=== PATIENT | male | born 1975 | race Caucasian/White ===

== ENCOUNTER 2017-03-11 21:09 | Inpatient (IN) | END 2017-03-14 15:15 | disposition home or self-care (01) | DRG 638 | DX: E11.10 Type 2 diabetes mellitus with ketoacidosis without coma (principal); N17.9 Acute kidney failure, unspecified; E86.0 Dehydration; E78.2 Mixed hyperlipidemia ==

== ENCOUNTER 2018-07-25 16:52 | Inpatient (IN) | payer MEDICAID ==
[~2018-07-25] VITALS: Ht 165.1 cm; Wt 73.2 kg
[~2018-07-25 16:52] MED LIST: ASPI-831 PO; ATOR40TA68 PO; BLOO-1340 MC; BLOO-432 MC; LANT3I SC; LINA5TAB PO; METF500T PO; NOVO3I SC
[2018-07-25] MEDS ORDERED: LIDOCAINE/MYLANTA 40 ML BTL PO STA (18:57)
[2018-07-25] MEDS ORDERED: FAMOTIDINE 20 MG INJ IV STA (18:57)
[2018-07-25] MEDS ORDERED: SOD CHLORIDE 0.9% 740 ML IV ONE (19:00)
--- NOTE | 2018-07-25 19:01 | ERD ---
ER Documentation Chief Complaint Chief Complaint Complains of dizziness x 3 days HPI 43-year-old male who presents to the emergency room asking for refill of his metformin 1000 twice daily. He states that he has been without it for several days. He is feeling occasional lightheadedness and dizziness. He is describing epigastric burning abdominal discomfort radiating up into his chest that is postprandial. He denies exertional chest pain, no pleuritic pain. No polyuria polydipsia polyphagia. He is also been off of insulin for greater than 1 year and does not have a primary care physician. During the patient's encounter translation services were utilized Language: Arabic Source: In person ROS All systems reviewed and are negative except as per history of present illness. Medications Home Meds Reported Medications [place]-3 Fatty Acids/Fish Oil (Fish Oil 1,000 mg Capsule) 1 Each Capsule, 1 EACH PO DAILY, CAP 07/25/18 Discontinued Scripts Blood Glucose Strips-Dispmeter (Openera Blood Glucose System) 1 Each Kit, 1 EACH MC DAILY, #1 Prov:TRAVIS TAYLOR MD 03/14/17 Blood-Glucose Meter (BLOOD GLUCOSE MONITORING) 1 Each Each, 1 EACH MC DAILY, #1 Prov:TRAVIS TAYLOR MD 03/14/17 Atorvastatin* (Atorvastatin*) 40 Mg Tablet, 40 MG PO HS for 60 Days, #60 TAB 5 Refills Prov:TRAVIS TAYLOR MD 03/14/17 Aspirin (Aspirin) 81 Mg Chew, 81 MG PO DAILY for 30 Days, #30 TAB 5 Refills Prov:TRAVIS TAYLOR MD 03/14/17 Linagliptin (TRADJENTA) 5 Mg Tablet, 5 MG PO DAILY for 30 Days, #30 TAB 5 Refills Prov:TRAVIS TAYLOR MD 03/14/17 Metformin Hcl (Glucophage) 500 Mg Tablet, 1000 MG PO PC BREAKFAST DINNER for 30 Days, #60 TAB 4 Refills Prov:TRAVIS TAYLOR MD 03/14/17 Insulin Glargine* (Lantus*) 100 Unit/Ml Soln, 25 UNIT SC DAILY@08 for 30 Days, #30 DAYSX 3 LO 5 Refills Prov:TRAVIS TAYLOR MD 03/14/17 Insulin Aspart* (Novolog Insulin Pen*) 100 Unit/Ml Soln, 12 UNIT SC WITH MEALS for 30 Days, #30 DAYSX 3 LO 5 Refills Prov:TRAVIS TAYLOR MD 03/14/17 Allergies Allergies: Coded Allergies: No Known Allergy (Unverified , 07/25/18) PMhx/Soc History of Surgery: No Hx Miscellaneous Medical Probl: Yes (DM) Hx Alcohol Use: Yes Hx Substance Use: No Hx Tobacco Use: Yes FmHx Family History: No diabetes Physical Exam Vitals Vital Signs Date Temp Pulse Resp B/P (MAP) Pulse Ox O2 O2 Flow FiO2 Time Delivery Rate 07/25/18 88 20 115/76 99 Room Air 20:15 (89) 07/25/18 98 26 124/79 100 Room Air 19:00 (94) 07/25/18 97.9 101 20 122/68 100 17:02 (86) Physical Exam General: Well developed, well nourished, no acute distress Head: Normocephalic, atraumatic. Eyes: Pupils equally reactive, EOM intact ENT: Moist mucous membranes Neck: Supple, no lymphadenopathy Respiratory: Lungs clear bilaterally, no distress Cardiovascular: RRR, no murmurs, rubs, or gallops Abdominal: Soft, non-tender, non-distended, no peritoneal signs : Deferred MSK: No edema, no unilateral swelling, 5/5 strength Neurologic: Alert and oriented, moving all extremities, normal speech, no focal weakness, no cerebellar signs Skin: No rash Psych: Normal mood Result Diagram: 07/25/18190407/25/181904 Results 24 hrs Laboratory Tests Test 07/25/18 19:05 07/25/18 19:06 White Blood Count 11.0 10^3/ul Red Blood Count 5.34 10^6/ul Hemoglobin 15.9 g/dl Hematocrit 46.2 % Mean Corpuscular Volume 86.5 fl Mean Corpuscular Hemoglobin 29.8 pg Mean Corpuscular Hemoglobin Concent 34.4 g/dl Red Cell Distribution Width 12.9 % Platelet Count 219 10^3/UL Mean Platelet Volume 10.7 fl Immature Granulocytes % 0.500 % Neutrophils % 68.9 % Lymphocytes % 23.0 % Monocytes % 7.0 % Eosinophils % 0.2 % Basophils % 0.4 % Nucleated Red Blood Cells % 0.0 /100WBC Immature Granulocytes # 0.050 10^3/ul Neutrophils # 7.6 10^3/ul Lymphocytes # 2.5 10^3/ul Monocytes # 0.8 10^3/ul Eosinophils # 0.0 10^3/ul Basophils # 0.0 10^3/ul Nucleated Red Blood Cells # 0.0 10^3/ul Sodium Level 135 mmol/L Potassium Level 4.4 mmol/L Chloride Level 100 mmol/L Carbon Dioxide Level 7 mmol/L Anion Gap 28 Blood Urea Nitrogen 15 mg/dl Creatinine 0.94 mg/dl Est Glomerular Filtrat Rate mL/min > 60 mL/min Glucose Level 335 mg/dl Bedside Glucose 361 mg/dL Hemoglobin A1c % Calcium Level 9.2 mg/dl Phosphorus Level 4.0 mg/dl Magnesium Level 2.0 mg/dl Troponin I < 0.012 ng/ml Blood Gas Specimen Source Blood venous Arterial Blood Date Drawn 07/25/2018 7:10:14 PM Arterial Blood Gas Puncture Site VENOUS LINE Parveen Test N/A Venous Blood pH 7.151 Venous Blood pCO2 (Temp Corrected) 28.2 mmHG Venous Blood pO2 (Temp Corrected) 28.6 mmHG Venous Blood HCO3 9.6 mmol/L Venous Blood Oxygen Saturation 54.5 mmHG Venous Blood Base Excess -17.7 mmol/L Venous Blood Total Hemoglobin 16.1 g/dl Venous Blood Oxyhemoglobin 54.1 % Venous Blood Methemoglobin 0.3 % Carboxyhemoglobin 0.5 % Blood Gas Temperature 37.0 C Blood Gas Modality ROOM AIR FiO2 21.0 % Blood Gas Critical Value Read Back Cecilia RASHEED RN Blood Gas Notified Whom MM Blood Gas Notified Time 07/25/2018 7:17:29 PM Current Medications Medications Dose Sig/Marci Start Time Status Last (Trade) Ordered Route PRN Stop Time Admin Dose Reason Admin Sodium 740 ml @ ONCE ONCE 07/25/18 DC 07/25/18 Chloride 740 mls/hr IV 19:00 19:22 07/25/18 19:59 Famotidine 20 mg ONCE STAT 07/25/18 DC 07/25/18 (Pepcid Iv) IV 18:57 19:22 07/25/18 18:58 40 ml ONCE STAT 07/25/18 DC 07/25/18 Miscellaneous PO 18:57 19:22 Medication 07/25/18 18:58 (Gi Cocktail (2)) Potassium 1,000 ml @ Q0M IV 07/25/18 Chloride/Sodi 0 mls/hr 19:19 um Chloride Potassium 1,000 ml @ Q0M IV 07/25/18 Chloride/Dext 0 mls/hr 19:19 jordan/ Sod Cl Potassium 1,000 ml @ Q0M IV 07/25/18 Chloride/Sodi 0 mls/hr 19:19 um Chloride Potassium 1,000 ml @ Q0M IV 07/25/18 Chloride/Dext 0 mls/hr 19:19 jordan/ Sod Cl Sodium 1,000 ml @ Q0M IV 07/25/18 Chloride 0 mls/hr 19:19 1,000 ml @ Q0M IV 07/25/18 Dextrose/Sodi 0 mls/hr 19:19 um Chloride Insulin 101 ml @ ER DKA 07/25/18 Human 7.45 mls/hr PROTOCOL IV 19:30 Regular 100 unit/ Sodium Chloride Lactated 740 ml @ ONCE ONCE 07/25/18 DC 07/25/18 Ringer's 740 mls/hr IV 19:30 20:17 07/25/18 20:29 HYPOGLYCEM 07/25/18 Miscellaneous HYPOGLYCEMIA PROTOCOL PRN 19:30 TREATMENT XX Information .HYPOGLYCEMIA (* PROTOCOL Miscellaneous Pharmacy Order) Dextrose 50 ml Q15M PRN 07/25/18 (D50w IV 19:30 Syringe) .DECREASED GLUCOSE Dextrose 25 ml Q15M PRN 07/25/18 (D50w IV 19:30 Syringe) .DECREASED GLUCOSE Procedures/MDM EKG, MONITORS, & DIAGNOSTIC IMAGING: EKG: I reviewed and interpreted a 12-lead EKG. Rhythm: Normal sinus rhythm ST Changes: No contiguous ST segment elevations T waves: No contiguous T wave inversions Impression: [No evidence of acute cardiac ischemia] LAB INTERPRETATION: I reviewed the laboratory testing and it shows evidence of diabetic ketoacidosis with a pH of 7.1, bicarb of 7 and anion gap acidosis MEDICAL DECISION MAKING: The patient presents after running out of his metformin. He has signs and symptoms consistent with reflux. His chest pain is not consistent with acute coronary syndrome though given the patient's age and history of diabetes I do believe EKG and troponin would be reasonable. GI cocktail appropriate. Benign abdominal examination. Patient will need screening to rule out diabetic ketoacidosis and refill his metformin. I do not feel the patient requires refill of his insulin given he has been off of the medication for greater than 1 year. He needs to follow-up with primary care physician and possibly bulb packer. ER COURSE: * Patient's Accu-Chek revealed hyperglycemia, venous blood gas revealed evidence and concern for diabetic ketoacidosis with a pH of 7.1 * The patient was initiated on DKA protocol with a bolus of normal saline and lactated Ringer's. Supplemental replacement fluid and potassium was ordered per protocol. Patient will be started on insulin drip. Intensive care unit needed. * The patient is protecting his airway and does not require intubation or positive pressure ventilation. Continue to monitor and hydrate. CONSULTATION: [None] DISPOSITION PLAN: Accepting care team and consultations: I discussed the current laboratory data, diagnostic imaging and emergency care provided. Admitting team: Dr. Vega Admitting team indication: Insurance directed Critical Care Note: Total time: 40 min Indication/Organ System Threat: Diabetic ketoacidosis I spent the above amount of critical care time with the patient, not including billable procedures. This included chart review, consultations, repeat bedside evaluations, and titration of appropriate medications to prevent cardiopulmonary or respiratory collapse. Departure Diagnosis: Primary Impression: Diabetic ketoacidosis Diabetes mellitus type: type 2 Diabetes mellitus complication detail: without coma Qualified Codes: E11.10 - Type 2 diabetes mellitus with ketoacidosis without coma Additional Impressions: Noncompliance with medication regimen Dehydration Condition: Critical ERIC LIND MD Jul 25, 2018 19:01
[2018-07-25] MEDS ORDERED: D10/0.45% NACL + KCL 40 MEQ 1,000 ML IV SCH (19:19)
[2018-07-25] MEDS ORDERED: SOD CHLORIDE 0.9% 1,000 ML IV SCH (19:19)
[2018-07-25] MEDS ORDERED: DEXTROSE 10 %/0.45 % NACL 1,000 ML IV SCH (19:19)
[2018-07-25] MEDS ORDERED: NS + KCL 40 MEQ 1,000 ML IV SCH (19:19)
[2018-07-25] MEDS ORDERED: NS + KCL 30 MEQ 1,000 ML IV SCH (19:19)
[2018-07-25] MEDS ORDERED: LACTATED RINGER'S 740 ML IV ONE (19:30)
[2018-07-25] MEDS ORDERED: DEXTROSE 50% 50 ML SYRINGE IV PRN ×2 (19:30)
[2018-07-25] MEDS ORDERED: INSULIN REGULAR, HUMAN 100 UNIT in SOD CHLORIDE 0.9% 100 ML IV SCH ×2 (19:30)
[2018-07-25] MEDS ORDERED: OMEG-135 PO (20:31)
--- NOTE | 2018-07-25 20:49 | HP ---
Date/Time of Note Date/Time of Note DATE: 07/25/18 TIME: 20:48 Assessment/Plan VTE Prophylaxis SCD applied (from Nsg): Yes Pharmacological prophylaxis: LMWH Lines/Catheters IV Catheter Type (from Nrsg): Saline Lock Assessment/Plan Assessment/Plan 1. Diabetic ketoacidosis - patient has been without metformin for 2 weeks - Will start on DKA protocol and monitor in ICU - once gap closes, will transition to SC 2. Diabetes Mellitus - Will check A1c - hold home PO medications - tobacco prevention health educator consultation placed as well as Dietary consult for education 3. Gastritis - continue on PPI 4. Diet - NPO 5. Gi ppx - PPI 6. DVT ppx - LMWH 7. Disposition - Admit to ICU for DKA protocol Result Diagram: 07/25/18190407/25/181904 Results 24hrs Laboratory Tests Test 07/25/18 19:05 07/25/18 19:06 White Blood Count 11.0 #H Red Blood Count 5.34 Hemoglobin 15.9 Hematocrit 46.2 Mean Corpuscular Volume 86.5 Mean Corpuscular Hemoglobin 29.8 Mean Corpuscular Hemoglobin Concent 34.4 Red Cell Distribution Width 12.9 Platelet Count 219 Mean Platelet Volume 10.7 H Immature Granulocytes % 0.500 H Neutrophils % 68.9 Lymphocytes % 23.0 Monocytes % 7.0 Eosinophils % 0.2 Basophils % 0.4 Nucleated Red Blood Cells % 0.0 Immature Granulocytes # 0.050 H Neutrophils # 7.6 H Lymphocytes # 2.5 Monocytes # 0.8 Eosinophils # 0.0 Basophils # 0.0 Nucleated Red Blood Cells # 0.0 Sodium Level 135 Potassium Level 4.4 Chloride Level 100 Carbon Dioxide Level 7 *L Anion Gap 28 H Blood Urea Nitrogen 15 Creatinine 0.94 Est Glomerular Filtrat Rate mL/min > 60 Glucose Level 335 H Bedside Glucose 361 H Hemoglobin A1c Calcium Level 9.2 Phosphorus Level 4.0 Magnesium Level 2.0 Troponin I < 0.012 Blood Gas Specimen Source Blood venous Arterial Blood Date Drawn 07/25/2018 7:10:14 PM Arterial Blood Gas Puncture Site VENOUS LINE Parveen Test N/A Venous Blood pH 7.151 *L Venous Blood pCO2 (Temp Corrected) 28.2 L Venous Blood pO2 (Temp Corrected) 28.6 Venous Blood HCO3 9.6 L Venous Blood Oxygen Saturation 54.5 L Venous Blood Base Excess -17.7 L Venous Blood Total Hemoglobin 16.1 Venous Blood Oxyhemoglobin 54.1 Venous Blood Methemoglobin 0.3 Carboxyhemoglobin 0.5 Blood Gas Temperature 37.0 Blood Gas Modality ROOM AIR FiO2 21.0 Blood Gas Critical Value Read Back Cecilia RASHEED RN Blood Gas Notified Whom MM Blood Gas Notified Time 07/25/2018 7:17:29 PM HPI/ROS Admit Date/Time Admit Date/Time 07/25/182029 Hx of Present Illness 43 yo M with PMH diabetes presented to ED with dizziness for the past 3 days. Patient states he has not been taking his metformin for the past 2 weeks since he ran out of his medications. He has been experiencing weakness, dizziness, and acid reflux for the past 3 days. He has been drinking fluids but has not been taking much PO intake given reflux symptoms which worsen with food. Patient has associated nausea, but denies any vomiting, hematemesis, chest pain, shortness of breath, palpitations, abdominal pain, urinary issues, diarrhea, melena, or bright red blood per rectum. In ED, patient found in DKA and started on protocol. ROS All 12 systems reviewed and pertinent positives as per HPI. All others negative. Constitutional: chills, fatigue, nausea Eyes: No discharge ENT: No congestion Respiratory: No cough, No shortness of breath, No sputum, No wheezing Cardiovascular: lightheadedness; No chest pain, No palpitations Gastrointestinal: pain, constipation, nausea, passing stool; No diarrhea, No vomiting Genitourinary: no complaints Musculoskeletal: no complaints Skin: No erythema, No laceration Neurologic: dizziness; No confusion, No focal-weakness, No syncope Endocrine: no complaints Lymphatic: no complaints Psychological: nl mood/affect Immunologic: no complaints PMH/Family/Social Past Medical History Medical History: diabetes Medications Current Medications Potassium Chloride/Sodium Chloride 1,000 ml @ 0 mls/hr Q0M IV ; Start 07/25/18 at 19:19 Potassium Chloride/Dextrose/ Sod Cl 1,000 ml @ 0 mls/hr Q0M IV ; Start 07/25/18 at 19:19 Potassium Chloride/Sodium Chloride 1,000 ml @ 0 mls/hr Q0M IV ; Start 07/25/18 at 19:19 Potassium Chloride/Dextrose/ Sod Cl 1,000 ml @ 0 mls/hr Q0M IV ; Start 07/25/18 at 19:19 Sodium Chloride 1,000 ml @ 0 mls/hr Q0M IV ; Start 07/25/18 at 19:19 Dextrose/Sodium Chloride 1,000 ml @ 0 mls/hr Q0M IV ; Start 07/25/18 at 19:19 Insulin Human Regular 100 unit/ Sodium Chloride 101 ml @ 7.45 mls/hr ER DKA PROTOCOL IV ; Start 07/25/18 at 19:30 Miscellaneous Information (* Miscellaneous Pharmacy Order) HYPOGLYCEMIA TREATMENT HYPOGLYCEM PROTOCOL PRN XX .HYPOGLYCEMIA PROTOCOL; Start 07/25/18 at 19:30 Dextrose (D50w Syringe) 50 ml Q15M PRN IV .DECREASED GLUCOSE; Start 07/25/18 at 19:30 Dextrose (D50w Syringe) 25 ml Q15M PRN IV .DECREASED GLUCOSE; Start 07/25/18 at 19:30 Coded Allergies: No Known Allergy (Unverified , 07/25/18) Past Surgical History Past Surgical Hx: no surgical history Family History Significant Family History: cancer, diabetes Social History Alcohol Use: rarely Smoking Status: Never smoker Drug Use: none Exam/Review of Systems Vital Signs Vitals Vital Signs Date Temp Pulse Resp B/P (MAP) Pulse Ox O2 O2 Flow FiO2 Time Delivery Rate 07/25/18 88 20 115/76 99 Room Air 20:15 (89) 07/25/18 97.9 17:02 Exam Exam General: Patient is a pleasant male, fatigued, currently lying in bed in no acute distress, dry mucous membranes HEENT: Atraumatic, normocephalic. The pupils are equal, round and reactive. Extraocular motor are intact Neck: Supple with full range of motion. No rigidity or meningismus Chest: Nontender Lungs: Clear to auscultation bilaterally no crackles rales or wheezing Heart: Normal S1-S2, Regular rhythm and rate. no murmurs Abdomen: Soft , nontender, nondistended , bowel sounds are present. No guarding no rebound tenderness. No masses or organomegaly. No costovertebral temporal angle mass Extremities: Normal to inspection, no edema no cyanosis Neurologic: Normal mental status, speech normal, cranial nerves II through XII are intact, motor and sensory are intact, Additional Comments Home medications reviewed MILAD CORDOVA MD Jul 25, 2018 20:48
[2018-07-25] MEDS: D10/0.45% NACL + KCL 30 MEQ 1,000 ML IV SCH (20:53)
[2018-07-25] MEDS ORDERED: ACETAMINOPHEN 325 MG TAB PO PRN (21:00)
[2018-07-25] MEDS ORDERED: ONDANSETRON 4 MG INJ IV PRN (21:00)
[2018-07-26] VITALS (22 sets, daily range): BP systolic 93–112; BP diastolic 60–85; PULSE 75–100; RESP 13–25; Ht 165.1 cm; Wt 73.2 kg
[2018-07-26] MEDS: D10/0.45% NACL + KCL 30 MEQ 1,000 ML IV SCH (02:07)
[2018-07-26] MEDS: PANTOPRAZOLE 40 MG INJ IV SCH (05:25)
[2018-07-26] MEDS: ENOXAPARIN 40 MG/0.4 ML SYG SC SCH (09:04)
[2018-07-26] MEDS: INSULIN ASPART [NOVOLOG] 3 ML PEN SC SCH ×5 (11:30→21:23)
--- NOTE | 2018-07-26 13:54 | PN ---
Date/Time of Note Date/Time of Note DATE: 07/26/18 TIME: 13:50 Assessment/Plan VTE Prophylaxis Risk score (from Ns)>0 risk: 1 SCD applied (from Ns): Yes Pharmacological prophylaxis: LMWH Lines/Catheters IV Catheter Type (from Nrs): Peripheral IV Assessment/Plan Assessment/Plan # Diabetic ketoacidosis #Diabetes - patient has been without metformin for 2 weeks - Stopped insulin several months prior. - Does not appear to have any infectious event to precipitate DKA. - Now gap closed, on subQ insulin, regular diet. - Holding home metformin. # Gastritis - continue on PPI # DVT ppx - LMWH Dispo: Transfer to med/surg, likely D/C tomorrow. Result Diagram: 07/25/18 1905 07/26/18 0749 Results 24hrs Laboratory Tests Test 07/25/18 19:05 07/25/18 19:06 07/25/18 20:32 07/25/18 20:55 White Blood 11.0 #H Count Red Blood Count 5.34 Hemoglobin 15.9 Hematocrit 46.2 Mean 86.5 Corpuscular Volume Mean 29.8 Corpuscular Hemoglobin Mean 34.4 Corpuscular Hemoglobin Conc ent Red Cell 12.9 Distribution Width Platelet Count 219 Mean Platelet 10.7 H Volume Immature 0.500 H Granulocytes % Neutrophils % 68.9 Lymphocytes % 23.0 Monocytes % 7.0 Eosinophils % 0.2 Basophils % 0.4 Nucleated Red 0.0 Blood Cells % Immature 0.050 H Granulocytes # Neutrophils # 7.6 H Lymphocytes # 2.5 Monocytes # 0.8 Eosinophils # 0.0 Basophils # 0.0 Nucleated Red 0.0 Blood Cells # Sodium Level 135 135 Potassium Level 4.4 3.8 Chloride Level 100 109 Carbon Dioxide 7 *L 8 *L Level Anion Gap 28 H 18 #H Blood Urea 15 14 Nitrogen Creatinine 0.94 0.67 Est Glomerular > 60 > 60 Filtrat Rate mL/min Glucose Level 335 H 280 H Bedside Glucose 361 H 276 H Hemoglobin A1c Calcium Level 9.2 8.1 L Phosphorus 4.0 3.3 Level Magnesium Level 2.0 1.7 Troponin I < 0.012 Blood Gas Blood venous Specimen Source Arterial Blood 07/25/2018 7:10: Date Drawn 14 PM Arterial Blood VENOUS LINE Gas Puncture Site Parveen Test N/A Venous Blood pH 7.151 *L Venous Blood 28.2 L pCO2 (Temp Corrected ) Venous Blood 28.6 pO2 (Temp Corrected ) Venous Blood 9.6 L HCO3 Venous Blood 54.5 L Oxygen Saturation Venous Blood -17.7 L Base Excess Venous Blood 16.1 Total Hemoglobin Venous Blood 54.1 Oxyhemoglobin Venous Blood 0.3 Methemoglobin Carboxyhemoglob 0.5 in Blood Gas 37.0 Temperature Blood Gas ROOM AIR Modality FiO2 21.0 Blood Gas J. Critical Value CLAUDIA RASHEED Read Back Blood Gas Notified Whom Blood Gas 07/25/2018 7:17: Notified Time 29 PM Test 07/25/18 21:19 07/25/18 21:46 07/25/18 22:50 07/25/18 23:05 Blood Gas Blood venous Specimen Source Arterial Blood 07/25/2018 9:25: Date Drawn 42 PM Arterial Blood VENOUS LINE Gas Puncture Site Parveen Test N/A Venous Blood pH 7.149 *L Venous Blood 23.4 L pCO2 (Temp Corrected ) Venous Blood 43.3 H pO2 (Temp Corrected ) Venous Blood 7.9 L HCO3 Venous Blood 75.9 H Oxygen Saturation Venous Blood -19.1 L Base Excess Venous Blood 13.9 Total Hemoglobin Venous Blood 75.6 Oxyhemoglobin Venous Blood 0.3 Methemoglobin Carboxyhemoglob 0.1 in Blood Gas 37.0 Temperature Blood Gas ROOM AIR Modality FiO2 21.0 Blood Gas Francisco MARQUES RN Critical Value Read Back Blood Gas Notified Whom Blood Gas 07/25/2018 9:31: Notified Time 32 PM Bedside Glucose 258 H 209 Sodium Level 137 Potassium Level 3.6 Chloride Level 108 Carbon Dioxide 9 *L Level Anion Gap 20 H Blood Urea 12 Nitrogen Creatinine 0.63 Est Glomerular > 60 Filtrat Rate mL/min Glucose Level 217 Calcium Level 7.9 L Phosphorus 2.3 #L Level Magnesium Level 1.8 Test 07/25/18 23:19 07/25/18 23:49 07/26/18 00:30 07/26/18 01:04 Blood Gas Blood venous Specimen Source Arterial Blood 07/25/2018 11:02 Date Drawn :40 PM Arterial Blood VENOUS LINE Gas Puncture Site Parveen Test N/A Venous Blood pH 7.203 L Venous Blood 25.2 L pCO2 (Temp Corrected ) Venous Blood 44.7 H pO2 (Temp Corrected ) Venous Blood 9.7 L HCO3 Venous Blood 78.7 H Oxygen Saturation Venous Blood -16.5 L Base Excess Venous Blood 14.3 Total Hemoglobin Venous Blood 78.4 Oxyhemoglobin Venous Blood 0.2 Methemoglobin Carboxyhemoglob 0.2 in Blood Gas 37.0 Temperature Blood Gas ROOM AIR Modality FiO2 21.0 Blood Gas MM Notified Whom Blood Gas 07/25/2018 11:08 Notified Time :21 PM Bedside Glucose 201 138 Urine Color STRAW Urine Clarity CLEAR Urine pH 5.0 Urine Specific 1.017 [place] Urine Ketones 2+ H Urine Nitrite NEGATIVE Urine Bilirubin NEGATIVE Urine NEGATIVE Urobilinogen Urine Leukocyte NEGATIVE Esterase Urine 2 Microscopic RBC Urine 1 Microscopic WBC Urine Mucus FEW A Urine 1+ H Hemoglobin Urine Glucose 3+ H Urine Total NEGATIVE Protein Test 07/26/18 01:56 07/26/18 03:01 07/26/18 03:19 07/26/18 03:45 Bedside Glucose 162 145 Blood Gas Blood venous Specimen Source Arterial Blood 07/26/2018 3:09 Date Drawn :19 AM Arterial Blood VENOUS LINE Gas Puncture Site Parveen Test N/A Venous Blood pH 7.289 L Venous Blood 33.5 L pCO2 (Temp Corrected ) Venous Blood 46.5 H pO2 (Temp Corrected ) Venous Blood 15.7 L HCO3 Venous Blood 86.9 H Oxygen Saturation Venous Blood -9.8 L Base Excess Venous Blood 14.0 Total Hemoglobin Venous Blood 86.4 Oxyhemoglobin Venous Blood 0.3 Methemoglobin Carboxyhemoglob 0.3 in Blood Gas 37.0 Temperature Blood Gas ROOM AIR Modality FiO2 21.0 Blood Gas MM Notified Whom Blood Gas 07/26/2018 3:16 Notified Time :02 AM Sodium Level 138 Potassium Level 3.2 L Chloride Level 113 H Carbon Dioxide 16 L Level Anion Gap 9 # Blood Urea 11 Nitrogen Creatinine 0.62 Est Glomerular > 60 Filtrat Rate mL/min Glucose Level 86 # Calcium Level 7.9 L Phosphorus 2.1 L Level Magnesium Level 1.9 Test 07/26/18 03:55 07/26/18 04:55 07/26/18 05:54 07/26/18 06:42 Bedside Glucose 107 116 83 84 Test 07/26/18 07:49 07/26/18 07:50 07/26/18 08:46 07/26/18 10:03 Sodium Level 137 Potassium Level 3.5 Chloride Level 107 Carbon Dioxide 18 L Level Anion Gap 12 Blood Urea 10 Nitrogen Creatinine 0.59 L Est Glomerular > 60 Filtrat Rate mL/min Glucose Level 105 Calcium Level 8.0 L Bedside Glucose 137 138 124 Subjective 24 Hr Interval Summary Free Text/Dictation Patient awake, alert, no complaints. Started on diet, transitioned to subQ insulin today. Exam/Review of Systems Exam Vitals Vital Signs Date Temp Pulse Resp B/P (MAP) Pulse Ox O2 O2 Flow FiO2 Time Delivery Rate 07/26/18 76 22 105/71 100 Room Air 13:00 (82) 07/26/18 98.6 12:00 Intake and Output 07/25/18 07/25/18 07/26/18 1515:00 23:00 07:00 IntakeIntake Total 2258.35 ml OutputOutput Total 900 ml BalanceBalance 1358.35 ml Exam General: Patient is a pleasant man, awake and alert in no distress. HEENT: Atraumatic, normocephalic. The pupils are equal, round and reactive. Extraocular motor are intact Neck: Supple with full range of motion. No rigidity or meningismus Chest: Nontender Lungs: Clear to auscultation bilaterally no crackles rales or wheezing Heart: Normal S1-S2, Regular rhythm and rate. no murmurs Abdomen: Soft , nontender, nondistended , bowel sounds are present. No guarding no rebound tenderness. Extremities: Normal to inspection, no edema no cyanosis Results Results 24hrs Laboratory Tests Test 07/25/18 19:05 07/25/18 19:06 07/25/18 20:32 07/25/18 20:55 White Blood 11.0 #H Count Red Blood Count 5.34 Hemoglobin 15.9 Hematocrit 46.2 Mean 86.5 Corpuscular Volume Mean 29.8 Corpuscular Hemoglobin Mean 34.4 Corpuscular Hemoglobin Conc ent Red Cell 12.9 Distribution Width Platelet Count 219 Mean Platelet 10.7 H Volume Immature 0.500 H Granulocytes % Neutrophils % 68.9 Lymphocytes % 23.0 Monocytes % 7.0 Eosinophils % 0.2 Basophils % 0.4 Nucleated Red 0.0 Blood Cells % Immature 0.050 H Granulocytes # Neutrophils # 7.6 H Lymphocytes # 2.5 Monocytes # 0.8 Eosinophils # 0.0 Basophils # 0.0 Nucleated Red 0.0 Blood Cells # Sodium Level 135 135 Potassium Level 4.4 3.8 Chloride Level 100 109 Carbon Dioxide 7 *L 8 *L Level Anion Gap 28 H 18 #H Blood Urea 15 14 Nitrogen Creatinine 0.94 0.67 Est Glomerular > 60 > 60 Filtrat Rate mL/min Glucose Level 335 H 280 H Bedside Glucose 361 H 276 H Hemoglobin A1c Calcium Level 9.2 8.1 L Phosphorus 4.0 3.3 Level Magnesium Level 2.0 1.7 Troponin I < 0.012 Blood Gas Blood venous Specimen Source Arterial Blood 07/25/2018 7:10: Date Drawn 14 PM Arterial Blood VENOUS LINE Gas Puncture Site Parveen Test N/A Venous Blood pH 7.151 *L Venous Blood 28.2 L pCO2 (Temp Corrected ) Venous Blood 28.6 pO2 (Temp Corrected ) Venous Blood 9.6 L HCO3 Venous Blood 54.5 L Oxygen Saturation Venous Blood -17.7 L Base Excess Venous Blood 16.1 Total Hemoglobin Venous Blood 54.1 Oxyhemoglobin Venous Blood 0.3 Methemoglobin Carboxyhemoglob 0.5 in Blood Gas 37.0 Temperature Blood Gas ROOM AIR Modality FiO2 21.0 Blood Gas J. Critical Value CLAUDIA RASHEED Read Back Blood Gas Notified Whom Blood Gas 07/25/2018 7:17: Notified Time 29 PM Test 07/25/18 21:19 07/25/18 21:46 07/25/18 22:50 07/25/18 23:05 Blood Gas Blood venous Specimen Source Arterial Blood 07/25/2018 9:25: Date Drawn 42 PM Arterial Blood VENOUS LINE Gas Puncture Site Parveen Test N/A Venous Blood pH 7.149 *L Venous Blood 23.4 L pCO2 (Temp Corrected ) Venous Blood 43.3 H pO2 (Temp Corrected ) Venous Blood 7.9 L HCO3 Venous Blood 75.9 H Oxygen Saturation Venous Blood -19.1 L Base Excess Venous Blood 13.9 Total Hemoglobin Venous Blood 75.6 Oxyhemoglobin Venous Blood 0.3 Methemoglobin Carboxyhemoglob 0.1 in Blood Gas 37.0 Temperature Blood Gas ROOM AIR Modality FiO2 21.0 Blood Gas Francisco MARQUES RN Critical Value Read Back Blood Gas Notified Whom Blood Gas 07/25/2018 9:31: Notified Time 32 PM Bedside Glucose 258 H 209 Sodium Level 137 Potassium Level 3.6 Chloride Level 108 Carbon Dioxide 9 *L Level Anion Gap 20 H Blood Urea 12 Nitrogen Creatinine 0.63 Est Glomerular > 60 Filtrat Rate mL/min Glucose Level 217 Calcium Level 7.9 L Phosphorus 2.3 #L Level Magnesium Level 1.8 Test 07/25/18 23:19 07/25/18 23:49 07/26/18 00:30 07/26/18 01:04 Blood Gas Blood venous Specimen Source Arterial Blood 07/25/2018 11:02 Date Drawn :40 PM Arterial Blood VENOUS LINE Gas Puncture Site Parveen Test N/A Venous Blood pH 7.203 L Venous Blood 25.2 L pCO2 (Temp Corrected ) Venous Blood 44.7 H pO2 (Temp Corrected ) Venous Blood 9.7 L HCO3 Venous Blood 78.7 H Oxygen Saturation Venous Blood -16.5 L Base Excess Venous Blood 14.3 Total Hemoglobin Venous Blood 78.4 Oxyhemoglobin Venous Blood 0.2 Methemoglobin Carboxyhemoglob 0.2 in Blood Gas 37.0 Temperature Blood Gas ROOM AIR Modality FiO2 21.0 Blood Gas MM Notified Whom Blood Gas 07/25/2018 11:08 Notified Time :21 PM Bedside Glucose 201 138 Urine Color STRAW Urine Clarity CLEAR Urine pH 5.0 Urine Specific 1.017 [place] Urine Ketones 2+ H Urine Nitrite NEGATIVE Urine Bilirubin NEGATIVE Urine NEGATIVE Urobilinogen Urine Leukocyte NEGATIVE Esterase Urine 2 Microscopic RBC Urine 1 Microscopic WBC Urine Mucus FEW A Urine 1+ H Hemoglobin Urine Glucose 3+ H Urine Total NEGATIVE Protein Test 07/26/18 01:56 07/26/18 03:01 07/26/18 03:19 07/26/18 03:45 Bedside Glucose 162 145 Blood Gas Blood venous Specimen Source Arterial Blood 07/26/2018 3:09 Date Drawn :19 AM Arterial Blood VENOUS LINE Gas Puncture Site Parveen Test N/A Venous Blood pH 7.289 L Venous Blood 33.5 L pCO2 (Temp Corrected ) Venous Blood 46.5 H pO2 (Temp Corrected ) Venous Blood 15.7 L HCO3 Venous Blood 86.9 H Oxygen Saturation Venous Blood -9.8 L Base Excess Venous Blood 14.0 Total Hemoglobin Venous Blood 86.4 Oxyhemoglobin Venous Blood 0.3 Methemoglobin Carboxyhemoglob 0.3 in Blood Gas 37.0 Temperature Blood Gas ROOM AIR Modality FiO2 21.0 Blood Gas MM Notified Whom Blood Gas 07/26/2018 3:16 Notified Time :02 AM Sodium Level 138 Potassium Level 3.2 L Chloride Level 113 H Carbon Dioxide 16 L Level Anion Gap 9 # Blood Urea 11 Nitrogen Creatinine 0.62 Est Glomerular > 60 Filtrat Rate mL/min Glucose Level 86 # Calcium Level 7.9 L Phosphorus 2.1 L Level Magnesium Level 1.9 Test 07/26/18 03:55 07/26/18 04:55 07/26/18 05:54 07/26/18 06:42 Bedside Glucose 107 116 83 84 Test 07/26/18 07:49 07/26/18 07:50 07/26/18 08:46 07/26/18 10:03 Sodium Level 137 Potassium Level 3.5 Chloride Level 107 Carbon Dioxide 18 L Level Anion Gap 12 Blood Urea 10 Nitrogen Creatinine 0.59 L Est Glomerular > 60 Filtrat Rate mL/min Glucose Level 105 Calcium Level 8.0 L Bedside Glucose 137 138 124 Medications Medication Current Medications Miscellaneous Information (* Miscellaneous Pharmacy Order) HYPOGLYCEMIA TREATMENT HYPOGLYCEM PROTOCOL PRN XX .HYPOGLYCEMIA PROTOCOL; Start 07/25/18 at 19:30 Dextrose (D50w Syringe) 50 ml Q15M PRN IV .DECREASED GLUCOSE; Start 07/25/18 at 19:30 Dextrose (D50w Syringe) 25 ml Q15M PRN IV .DECREASED GLUCOSE; Start 07/25/18 at 19:30 Ondansetron HCl (Zofran Inj) 4 mg Q6H PRN IV NAUSEA AND/OR VOMITING; Start 07/25/18 at 21:00 Acetaminophen (Tylenol Tab) 650 mg Q6H PRN PO PAIN LEVEL 1-3 OR FEVER; Start 07/25/18 at 21:00 Enoxaparin Sodium (Lovenox) 40 mg DAILY SC Last administered on 07/26/18at 09:04; Admin Dose 40 MG; Start 07/26/18 at 09:00 Pantoprazole (Protonix Iv) 40 mg DAILY@06 IV Last administered on 07/26/18at 05:25; Admin Dose 40 MG; Start 07/26/18 at 06:00 Insulin Glargine (Lantus) 25 units DAILY SC ; Start 07/26/18 at 12:00 Insulin Aspart (Novolog Insulin Pen) 7 unit WITH MEALS SC ; Start 07/26/18 at 11:30 Insulin Aspart (Novolog Insulin Pen) NOVOLOG *MODERATE* ALGORITHM WITH MEALS BEDTIME SC ; Start 07/26/18 at 11:30 LILLIAN ERWIN MD Jul 26, 2018 13:54
[2018-07-26] MEDS: INSULIN GLARGINE [LANTus] (100 UNITS/ML) SYG SC SCH (14:09)
[2018-07-26] MEDS ORDERED: DEXTROSE 50% 50 ML SYRINGE IV PRN ×2 (16:30)
[2018-07-26] MEDS ORDERED: GLUCOSE GEL 15 GRAM TUBE BUCCAL PRN (16:30)
[2018-07-26] MEDS ORDERED: GLUCAGON 1 MG INJ IM PRN (16:30)
[2018-07-26] MEDS ORDERED: GLUCOSE GEL 15 GRAM TUBE PO PRN ×2 (16:30)
[2018-07-27] MEDS: POTASSIUM CHLORIDE 20 MEQ/SW 100 ML IVPB SCH ×4 (01:32→07:53)
[2018-07-27 02:00] VITALS: BP 111/68; PULSE 76; RESP 18
[2018-07-27] MEDS: PANTOPRAZOLE 40 MG INJ IV SCH (05:54)
[2018-07-27 07:42] VITALS: BP 112/69; PULSE 83; RESP 18
[2018-07-27] MEDS: ENOXAPARIN 40 MG/0.4 ML SYG SC SCH (08:00)
[2018-07-27] MEDS: INSULIN ASPART [NOVOLOG] 3 ML PEN SC SCH ×4 (08:01→12:25)
[2018-07-27] MEDS: INSULIN GLARGINE [LANTus] (100 UNITS/ML) SYG SC SCH (08:20)
--- NOTE | 2018-07-27 13:31 | PDOCDIS ---
Discharge Instructions DIAGNOSIS Discharge Diagnosis Diabetic ketoacidosis CONDITION [id number] Patient Condition: [id number] Good HOME CARE INSTRUCTIONS: [id number] Special Diet: [id number] Consistent carbohydrate FOLLOW UP/APPOINTMENTS Follow-up Plan 1. Take metformin daily. 2. For your insulin, take Tresiba 30 units daily until you run out 3. Then switch to insulin 70/30 (R and N) 30 units twice daily. 4. Make an appointment with your primary care doctor in 1-2 weeks. LILLIAN ERWIN MD Jul 27, 2018 13:31
[2018-07-27 14:00] VITALS: BP 125/74; PULSE 105; RESP 18
--- NOTE | 2018-07-27 17:58 | DS ---
Date/Time of Note Date/Time of Note DATE: 07/27/18 TIME: 17:53 Discharge Summary Admission/Discharge Info Admit Date/Time Jul 25, 2018 at 20:22 Discharge Date/Time Jul 27, 2018 at 17:20 Discharge Diagnosis Diabetic ketoacidosis Patient Condition: Good Consults None Procedures None Hx of Present Illness 43 yo M with PMH diabetes presented to ED with dizziness for the past 3 days. Patient states he has not been taking his metformin for the past 2 weeks since he ran out of his medications. He has been experiencing weakness, dizziness, and acid reflux for the past 3 days. He has been drinking fluids but has not been taking much PO intake given reflux symptoms which worsen with food. Patient has associated nausea, but denies any vomiting, hematemesis, chest pain, shortness of breath, palpitations, abdominal pain, urinary issues, diarrhea, melena, or bright red blood per rectum. In ED, patient found in DKA and started on protocol. Hospital Course Gap closed quickly in the ICU, switched to subQ insulin. No infectious causes identifed; cause of DKA was probably medication noncompliance. He did admit previously being on insulin but being unable to afford it. We found some free samples of insulin degludec pens to give him. After that will switch to insulin 70/30. Home Meds Reported Medications [place]-3 Fatty Acids/Fish Oil (Fish Oil 1,000 mg Capsule) 1 Each Capsule, 1 EACH PO DAILY, CAP 07/25/18 Discontinued Scripts Blood Glucose Strips-Dispmeter ([employer] Blood Glucose System) 1 Each Kit, 1 EACH MC DAILY, #1 Prov:TRAVIS TAYLOR MD 03/14/17 Blood-Glucose Meter (BLOOD GLUCOSE MONITORING) 1 Each Each, 1 EACH MC DAILY, #1 Prov:TRAVIS TAYLOR MD 03/14/17 Atorvastatin* (Atorvastatin*) 40 Mg Tablet, 40 MG PO HS for 60 Days, #60 TAB 5 Refills Prov:TRAVIS TAYLOR MD 03/14/17 Aspirin (Aspirin) 81 Mg Chew, 81 MG PO DAILY for 30 Days, #30 TAB 5 Refills Prov:TRAVIS TAYLOR MD 03/14/17 Linagliptin (TRADJENTA) 5 Mg Tablet, 5 MG PO DAILY for 30 Days, #30 TAB 5 Refills Prov:TRAVIS TAYLOR MD 03/14/17 Metformin Hcl (Glucophage) 500 Mg Tablet, 1000 MG PO PC BREAKFAST DINNER for 30 Days, #60 TAB 4 Refills Prov:TRAVIS TAYLOR MD 03/14/17 Insulin Glargine* (Lantus*) 100 Unit/Ml Soln, 25 UNIT SC DAILY@08 for 30 Days, #30 DAYSX 3 LO 5 Refills Prov:TRAVIS TAYLOR MD 03/14/17 Insulin Aspart* (Novolog Insulin Pen*) 100 Unit/Ml Soln, 12 UNIT SC WITH MEALS for 30 Days, #30 DAYSX 3 LO 5 Refills Prov:TRAVIS TAYLOR MD 03/14/17 Follow-up Plan 1. Take metformin daily. 2. For your insulin, take Tresiba 30 units daily until you run out 3. Then switch to insulin 70/30 (R and N) 30 units twice daily. 4. Make an appointment with your primary care doctor in 1-2 weeks. Primary Care Provider Not On Staff Doctor Time spent on discharge: > 30 minutes Pending Labs Laboratory Tests Test 07/26/18 17:55 07/26/18 19:30 07/26/18 21:18 07/26/18 22:54 Sodium Level 134 132 135 mmol/L (135-144 mmol/L (135-14 mmol/L (135-14 ) 4) 4) Potassium 3.5 3.2 2.8 Level mmol/L (3.5-5.1 mmol/L (3.5-5. mmol/L (3.5-5. ) 1) 1) Chloride Level 106 103 100 mmol/L (97-110) mmol/L (97-110 mmol/L (97-110 ) ) Carbon Dioxide 17 20 22 Level mmol/L (21-31) mmol/L (21-31) mmol/L (21-31) Anion Gap 11 (5-13) 9 (5-13) 13 (5-13) Blood Urea 15 mg/dl (7-20) 16 13 Nitrogen mg/dl (7-20) mg/dl (7-20) Creatinine 0.80 0.81 0.74 mg/dl (0.61-1.2 mg/dl (0.61-1. mg/dl (0.61-1. 4) 24) 24) Est Glomerular > 60 > 60 > 60 Filtrat mL/min (>60) mL/min (>60) mL/min (>60) Rate mL/min Glucose Level 369 259 167 mg/dl (70-220) mg/dl (70-220) mg/dl (70-220) Calcium Level 8.9 8.8 8.4 mg/dl (8.4-10.2 mg/dl (8.4-10. mg/dl (8.4-10. ) 2) 2) Phosphorus 2.5 3.3 Level mg/dl (2.5-4.9 mg/dl (2.5-4.9 ) ) Magnesium 1.8 1.9 Level mg/dl (1.7-2.5 mg/dl (1.7-2.5 ) ) Bedside 190 Glucose mg/dL (70-220) Test 07/27/18 02:33 07/27/18 07:47 07/27/18 09:09 07/27/18 09:19 Bedside 186 186 Glucose mg/dL (70-220) mg/dL (70-220) Lab Scanned REFERENCE Report LAB [id number] White Blood 5.9 Count 10^3/ul (4.8-1 0.8) Red Blood 4.64 Count 10^6/ul (4.70- 6.10) Hemoglobin 13.8 g/dl (14.0-18. 0) Hematocrit 38.6 % (42.0-52.0) Mean 83.2 Corpuscular fl (82.0-101.0 Volume ) Mean 29.7 Corpuscular pg (29.0-33.0) Hemoglobin Mean 35.8 Corpuscular g/dl (32.0-37. Hemoglobin Conc 0) ent Red Cell 13.1 Distribution % (11.5-14.5) Width Platelet Count 169 10^3/UL (140-4 15) Mean Platelet 10.2 Volume fl (7.4-10.4) Immature 0.300 Granulocytes % % (0.001-0.429 ) Neutrophils % 57.3 % (39.0-77.0) Lymphocytes % 33.7 % (15.0-51.0) Monocytes % 8.0 % (0.0-11.0) Eosinophils % 0.5 % (0.0-7.0) Basophils % 0.2 % (0.0-2.0) Nucleated Red 0.0 Blood Cells % /100WBC (0.0-0 .0) Immature 0.020 Granulocytes # 10^3/ul (0.0-0 .031) Neutrophils # 3.4 10^3/ul (1.6-7 .5) Lymphocytes # 2.0 10^3/ul (0.8-2 .9) Monocytes # 0.5 10^3/ul (0.3-0 .9) Eosinophils # 0.0 10^3/ul (0.0-0 .5) Basophils # 0.0 10^3/ul (0.0-0 .1) Nucleated Red 0.0 Blood Cells # 10^3/ul (0.0-0 .0) Sodium Level 135 mmol/L (135-14 4) Potassium 3.8 Level mmol/L (3.5-5. 1) Chloride Level 99 mmol/L (97-110 ) Carbon Dioxide 22 Level mmol/L (21-31) Anion Gap 14 (5-13) Blood Urea 10 Nitrogen mg/dl (7-20) Creatinine 0.57 mg/dl (0.61-1. 24) Est Glomerular > 60 Filtrat mL/min (>60) Rate mL/min Glucose Level 298 mg/dl (70-220) Calcium Level 8.8 mg/dl (8.4-10. 2) Phosphorus 3.2 Level mg/dl (2.5-4.9 ) Magnesium 1.9 Level mg/dl (1.7-2.5 ) Test 07/27/18 12:18 Bedside 239 Glucose mg/dL (70-220) LILLIAN ERWIN MD Jul 27, 2018 17:58
== END 2018-07-27 17:20 | disposition home or self-care (01) | DRG 639 ==
LOC: E/R 16:52 → ICU 20:22 → 2NE 07-26 19:50
PROVIDERS: ADMIT Internal Medicine; ATTEND Internal Medicine
DX: E11.10 Type 2 diabetes mellitus with ketoacidosis without coma (principal); E86.0 Dehydration; K29.70 Gastritis, unspecified, without bleeding; Z91.14 Patient's other noncompliance with medication regimen; Z79.4 Long term (current) use of insulin; Z79.82 Long term (current) use of aspirin
CPT/HCPCS: 36415; 80048; 81001; 82803; 82962; 83735; 84100; 84484; 85025; 87081; 93005; 96374; C9113; J1650; J1815; J3480; J7030; J7120